=== PATIENT | female | born 1985 | race Caucasian/White ===

== ENCOUNTER 2017-06-12 08:10 | Emergency (ER) | payer MEDICAID, OTHER ==
[~2017-06-12] VITALS: Ht 162.6 cm; Wt 90.0 kg
[2017-06-12] MEDS ORDERED: IBUPROFEN 600MG TABLET PO ONE (09:15)
[2017-06-12 09:29] VITALS: BP 134/76
== END 2017-06-12 09:45 | disposition home or self-care (01) ==
LOC: ER 08:25
DX: S80.02XA Contusion of left knee, initial encounter (principal); R51 Headache; V43.52XA Car driver injured in collision with other type car in traffic accident, initial encounter; Y93.89 Activity, other specified; Y92.488 Other paved roadways as the place of occurrence of the external cause; Z90.49 Acquired absence of other specified parts of digestive tract
CPT/HCPCS: 99283